=== PATIENT | female | born 1980 ===

== ENCOUNTER → 2017-08-28 | Emergency (ER) | payer OTHER ==
[~2017-08-28] VITALS: Ht 162.6 cm; Wt 94.8 kg
[~2017-08-28] MED LIST: GILTUSS TR TAB1 EACH PO; IBUPROFEN800 MG PO; MECLIZINE HCL25 MG PO; MOTRIN800 MG PO; ORPH100T PO; TOBREX5 ML OP; ZYRTEC10 MG PO
== END | disposition home or self-care (01) ==
LOC: ER 11:46
DX: R42 Dizziness and giddiness (principal)

== ENCOUNTER 2018-03-04 12:12 | Outpatient (CLI) | payer OTHER | END 2018-03-04 12:21 | disposition home or self-care (01) | LOC: LAB 12:12 | DX: J20.8 Acute bronchitis due to other specified organisms (principal); B96.0 Mycoplasma pneumoniae [M. pneumoniae] as the cause of diseases classified elsewhere ==

== ENCOUNTER 2019-03-13 08:50 | Outpatient (CLI) | payer OTHER | END 2019-03-13 09:00 | disposition home or self-care (01) | LOC: LAB 08:50 | DX: J11.1 Influenza due to unidentified influenza virus with other respiratory manifestations (principal); R22.1 Localized swelling, mass and lump, neck; E55.9 Vitamin D deficiency, unspecified; E78.49 Other hyperlipidemia ==

== ENCOUNTER 2019-03-13 08:57 | Outpatient (CLI) | payer OTHER | END 2019-03-13 09:44 | disposition home or self-care (01) | LOC: SONOGRAMA 08:57 | DX: R22.1 Localized swelling, mass and lump, neck (principal) ==

== ENCOUNTER 2019-04-02 09:28 | Outpatient (CLI) | payer OTHER | END 2019-04-02 09:30 | disposition home or self-care (01) | LOC: SONOGRAMA 09:28 | DX: R22.1 Localized swelling, mass and lump, neck (principal) ==